=== PATIENT | male | born 1975 | race African-American/Black ===

== ENCOUNTER 2022-11-01 12:25 | Emergency (ER) | payer MEDICAID ==
[~2022-11-01] VITALS: Ht 177.8 cm; Wt 89.0 kg
[2022-11-01 12:29] VITALS: BP 157/98
== END 2022-11-01 17:10 | disposition left against medical advice (07) ==
LOC: ER 12:25
DX: Z53.21 Procedure and treatment not carried out due to patient leaving prior to being seen by health care provider (principal)

== ENCOUNTER 2023-10-21 08:37 | Emergency (ER) | payer MEDICAID, OTHER ==
[~2023-10-21] VITALS: Ht 190.5 cm; Wt 91.2 kg
[2023-10-21 08:47] VITALS: BP 165/119; PULSE 89; RESP 16; TEMP 98; O2SAT 100
[2023-10-21] MEDS ORDERED: MUPI22OI2 TP (08:51)
[2023-10-21] MEDS ORDERED: TC1C15 TP (08:51)
== END 2023-10-21 09:00 | disposition home or self-care (01) ==
LOC: ER 08:37
DX: R21 Rash and other nonspecific skin eruption (principal)
CPT/HCPCS: 99283